=== PATIENT | male | born 1950 | race Caucasian/White ===

== ENCOUNTER → 2016-11-21 | Outpatient (CLI) | payer MEDICARE, OTHER ==
--- NOTE | 2016-11-21 13:36 | CONS ---
DATE OF CONSULTATION: 11/21/2016 This patient is a 65-year-old gentleman who has been evaluated in the sleep center for possible obstructive sleep apnea-hypopnea syndrome. HISTORY OF PRESENT ILLNESS: SLEEP-WAKE EVALUATION: Patient's usual sleep schedule is from around 10 p.m. to 6 a.m. He mostly falls asleep well. No TV in bedroom. He prefers to sleep on his stomach. He snores, wakes up from sleep with nocturia 2 times. No history of hypnagogic hallucinations, sleep paralysis or cataplexy. During the day he may feel sleepiness. [place] Sleepiness Scale increased to 9. He may take naps in the afternoon time and he feels refreshed after a nap. Past medical history is positive for: 1. Hypertension. 2. Hyperlipidemia. 3. Hypothyroidism. 4. Acid reflux. 5. BPH. 6. Back arthritis. 7. Knee arthritis. PAST SURGICAL HISTORY: None. MEDICATIONS: 1. Multivitamins. 2. Amlodipine. 3. Atenolol. 4. Xarelto. 5. Lipitor. 6. Ambien 10 mg at bedtime. 7. Celebrex. 8. Flomax. 9. Nexium. 10. Cymbalta. 11. Thyroxine. SOCIAL HISTORY: Negative for smoking. Alcohol consumption rarely. REVIEW OF SYSTEMS: Awakenings from sleep, feeling tiredness and sleepiness during the day. No fevers. No double vision. No recent chest pain. No shortness of breath. No abdominal pain. No bleeding episodes. No blood in urine. No seizure episodes. FAMILY HISTORY: Unavailable. Patient was adopted. PHYSICAL EXAMINATION: GENERAL: A pleasant 65-year-old gentleman without distress. VITAL SIGNS: BP 119/71, HR 58, RR 16. Height 68-1/2. Weight 230.6. BMI 34.4. Neck 17 inches in circumference. Temperature 98.1. Oxygen saturation at room air 98%. HEENT: PERRLA, EOMI. Evaluation of oropharynx showed tongue protrudes midline; extremely low position of soft palate. NECK: Supple. No JVD. Thyroid is not palpable. LUNGS: Clear to percussion and to auscultation. Good air exchange. No wheezing or rhonchi. HEART: S1, S2 regular. No murmurs, gallops or rubs. ABDOMEN: Obese. EXTREMITIES: No clubbing or cyanosis. STORE DETECTIVE: Awake, alert, and oriented x3. Cranial nerves 2 to 7 intact. There is no fasciculation or atrophy noted. No focal deficits observed. IMPRESSION: 1. Snoring, awakenings from sleep with nocturia, extremely low position of soft palate; patient takes naps in the afternoon; sometimes feels sleepy and irritated; obstructive sleep apnea-hypopnea syndrome. 2. Obesity; body mass index of 34.4. 3. Hypertension. 4. Hyperlipidemia. 5. Hypothyroidism. 6. Acid reflux. 7. History of benign prostatic hypertrophy. 8. History of back arthritis. 9. History of knee arthritis. PLAN: 1. Polysomnography for evaluation of patient's breathing during sleep. 2. CPAP/BiPAP titration if sleep study confirms obstructive sleep apnea-hypopnea syndrome. 3. Preferable position during sleep on the side. 4. No driving if patient feels any sleepiness. Patient is aware of civil and criminal liability for unsafe driving. 5. I will see patient for follow-up visit to explain results of the testing and following plan. Thank you very much for referring this patient for consultation. Sincerely, Akira Leigh MD, PhD, FAASM. Diplomat of [place] [employer], Sleep Medicine Board by [place] [employer] [place] [employer] [facility] [place]
== END ==
LOC: SLEEP 11:08
PROVIDERS: ATTEND Internal Medicine
DX: G47.33 Obstructive sleep apnea (adult) (pediatric) (principal); E66.9 Obesity, unspecified; I10 Essential (primary) hypertension; E78.5 Hyperlipidemia, unspecified; E03.9 Hypothyroidism, unspecified; K21.9 Gastro-esophageal reflux disease without esophagitis; Z98.890 Other specified postprocedural states; Z79.01 Long term (current) use of anticoagulants; Z79.899 Other long term (current) drug therapy; Z79.1 Long term (current) use of non-steroidal anti-inflammatories (NSAID)
CPT/HCPCS: 99211

== ENCOUNTER → 2016-12-24 | Outpatient (CLI) | payer MEDICARE ==
[2016-12-24 08:25] LABS: ALT 63 U/L (21-72); AST 39 U/L (17-59); Alkaline Phosphatase 75 U/L (38-126); Anion Gap 9 mmol/L; Blood Urea Nitrogen 22 mg/dL (9-20); Calcium 9.2 mg/dL (8.4-10.2); Carbon Dioxide 28 mmol/L (22-30); Chloride 106 mmol/L (98-107); Cholesterol 130 mg/dL (<200); Glucose 101 mg/dL (74-99); HDL Cholesterol 43 mg/dL (40-60); Non-African American GFR(MDRD) >60 (>60 ml/min/1.73 sqM); Potassium 4.9 mmol/L (3.5-5.1); Sodium 143 mmol/L (137-145); Total Bilirubin 0.5 mg/dL (0.2-1.3); Total Protein 7.4 g/dL (6.3-8.2); Triglycerides 150 mg/dL (<150)
== END | disposition home or self-care (01) ==
LOC: LABWHC1 07:13
PROVIDERS: ATTEND Internal Medicine Interventional Cardiology
DX: E78.2 Mixed hyperlipidemia (principal)
CPT/HCPCS: 36415; 80053; 80061

== ENCOUNTER → 2017-11-01 | Outpatient (CLI) | payer MEDICARE ==
[2017-11-01 08:45] LABS: Basophils # (A) 0.1 k/uL (0-0.2); Basophils % (A) 1 %; Eosinophils # (A) 0.3 k/uL (0-0.7); Eosinophils % (A) 5 %; HCT 52.3 % (39.0-53.0); HGB 17.1 gm/dL (13.0-17.5); Lymphocytes # (A) 1.3 k/uL (1.0-4.8); Lymphocytes % (A) 20 %; MCH 28.9 pg (25.0-35.0); MCHC 32.7 g/dL (31.0-37.0); MCV 88.3 fL (80.0-100.0); Mean Platelet Volume 7.3; Monocytes # (A) 0.7 k/uL (0-1.0); Monocytes % (A) 10 %; Neutrophils # (A) 4.1 k/uL (1.3-7.7); Neutrophils % (A) 61 %; Platelet Count 230 k/uL (150-450); RBC 5.93 m/uL (4.30-5.90); RDW 13.1 % (11.5-15.5); WBC 6.7 k/uL (3.8-10.6)
[2017-11-01 09:50] LABS: ALT 64 U/L (21-72); AST 37 U/L (17-59); Albumin 4.2 g/dL (3.5-5.0); Alkaline Phosphatase 80 U/L (38-126); Anion Gap 12 mmol/L; Blood Urea Nitrogen 18 mg/dL (9-20); Calcium 9.8 mg/dL (8.4-10.2); Carbon Dioxide 28 mmol/L (22-30); Chloride 104 mmol/L (98-107); Cholesterol 111 mg/dL (<200); Glucose 113 mg/dL (74-99); HDL Cholesterol 42 mg/dL (40-60); LDL Cholesterol,Calculated 55 mg/dL (0-99); Sodium 144 mmol/L (137-145); Total Bilirubin 0.7 mg/dL (0.2-1.3); Total Protein 7.4 g/dL (6.3-8.2); Triglycerides 68 mg/dL (<150)
[2017-11-01 10:05] LABS: T4, Free (Free Thyroxine) 0.98 ng/dL (0.78-2.19)
[2017-11-01 10:19] LABS: Prostate Specific Antigen 0.67 ng/mL (0.00-4.00)
== END | disposition home or self-care (01) ==
LOC: LABWHC1 08:05
PROVIDERS: ATTEND Family Medicine
DX: I48.0 Paroxysmal atrial fibrillation (principal); I10 Essential (primary) hypertension; E78.2 Mixed hyperlipidemia; R00.2 Palpitations
CPT/HCPCS: 36415; 80053; 80061; 84153; 84439; 84443; 85025

== ENCOUNTER → 2017-11-28 | Outpatient (CLI) | payer MEDICARE ==
--- NOTE | 2017-11-28 10:17 | XR ---
EXAMINATION TYPE: XR lumbosacral spine min 4V DATE OF EXAM: 11/28/2017 CLINICAL HISTORY: pain COMPARISON: NONE TECHNIQUE: Frontal, lateral, and oblique images of the lumbar spine are obtained. FINDINGS: There is a rotoscoliosis convex to the right. There are 5 lumbar type vertebral bodies manuel ntified. The lumbar spine shows satisfactory alignment without evidence of acute fracture or disloca tion. Vertebral body heights are within normal limits. Severe multilevel degenerative disc disease no gilmar with a vacuum disc, endplate sclerosis and facet joint arthropathy. Ventral spondylosis noted. The overlying soft tissue appears unremarkable. IMPRESSION: No acute fracture or dislocation is seen in the lumbar spine.ICD 10 NO FRACTURE, INITIAL EVALUATION
== END | disposition home or self-care (01) ==
LOC: RADXRMAIN 09:34
PROVIDERS: ATTEND Family Medicine
DX: M54.89 Other dorsalgia (principal)
CPT/HCPCS: 72110

== ENCOUNTER → 2018-08-11 | Outpatient (CLI) | payer MEDICARE ==
[2018-08-11 11:14] LABS: LDL Cholesterol,Calculated 56.4 mg/dL (0.0-131.0); VLDL Calculation 12.6 mg/dL (5.00-40.00)
== END | disposition home or self-care (01) ==
LOC: LABWHC1 06:31
PROVIDERS: ATTEND Internal Medicine Interventional Cardiology
DX: E78.2 Mixed hyperlipidemia (principal)
CPT/HCPCS: 36415; 80061; 84450; 84460

== ENCOUNTER → 2019-01-13 | Outpatient (CLI) | payer MEDICARE ==
[2019-01-13 10:02] LABS: African American GFR (CKD) >90 (>60 ml/min/1.73 sqM); Blood Urea Nitrogen 18 mg/dL (9-20)
--- NOTE | 2019-01-13 13:22 | CT ---
EXAMINATION TYPE: CT abdomen pelvis w con DATE OF EXAM: 01/13/2019 COMPARISON: NONE HISTORY: 68-year-old male Right lower quadrant pain (knot feeling) TECHNIQUE: Contiguous axial scanning of the abdomen and pelvis following administration of 100 ml Iso joni 300 IV contrast. Delayed images through the kidneys and coronal/sagittal reconstructions perform ed. CT DLP: 3526 mGycm Automated exposure control for dose reduction was used. FINDINGS: Heart upper limits of normal in size without pericardial effusion. Prominent epicardial fat pad noted . Strandy atelectasis or scarring inferior lingula. No pleural effusion. Small hiatal hernia. Suggestion of tiny layering calculi in the gallbladder. No abnormal gallbladder distention. No focal liver lesion or biliary ductal dilatation. Portal venous system is patent. Adrenal glands, left kidney, spleen, and pancreas appear within normal limits. 5.8 cm cyst anterior upper pole right kidney. No dilated small bowel, free fluid, or free air. No mesenteric or retroperitoneal lymphadenopathy. Moderate stool in the cecum and lower ascending colon. Only mild stool elsewhere in the colon. Mild l eft-sided colonic diverticulosis. No pericolonic inflammatory change. Appendix not clearly visualized. No secondary findings of acute appendicitis. Bladder urine distended. Prostate gland is enlarged at 5.4 cm wide with lobulated median lobe hypertr ophy impressing into the posterior bladder base measuring 3.1 x 1.8 cm. Patulous left inguinal canal. No abnormal fluid collection in the pelvis or pelvic lymphadenopathy. Bones: Mild degenerative changes at the hips. Advanced disc/endplate degenerative change and hypertro phic facet arthropathy throughout the lumbar spine. Grade 1 retrolisthesis L3-L4 and grade 1 anteroli sthesis L4-L5. IMPRESSION: 1. MODERATE STOOL IN THE CECUM AND LOWER ASCENDING COLON. MILD LEFT-SIDED COLONIC DIVERTICULOSIS. 2. SMALL HIATAL HERNIA AND TINY GALLSTONES. 3. A 5.8 CM RIGHT RENAL CYST. 4. PROSTATOMEGALY (5.4 CM WIDE) AND PROMINENT NODULAR SOFT TISSUE IMPRESSING INTO THE BLADDER BASE GRACE GGESTING MEDIAN LOBE HYPERTROPHY. CORRELATE FOR ANY BPH SYMPTOMS.
== END | disposition home or self-care (01) ==
LOC: RADCTMAIN 09:06
PROVIDERS: ATTEND Family Medicine
DX: K57.30 Diverticulosis of large intestine without perforation or abscess without bleeding (principal); K44.9 Diaphragmatic hernia without obstruction or gangrene; K80.20 Calculus of gallbladder without cholecystitis without obstruction; N28.1 Cyst of kidney, acquired; N40.0 Benign prostatic hyperplasia without lower urinary tract symptoms; M79.89 Other specified soft tissue disorders; R50.9 Fever, unspecified
CPT/HCPCS: 82565; 84520; 74177; 36415; Q9967

== ENCOUNTER → 2019-01-22 | Outpatient (CLI) | payer MEDICARE | END | disposition home or self-care (01) | LOC: LABWHC1 10:45 | PROVIDERS: ATTEND Family Medicine | DX: Z12.5 Encounter for screening for malignant neoplasm of prostate (principal) | CPT/HCPCS: 36415; 84153 ==

== ENCOUNTER → 2019-02-03 | Outpatient (CLI) | payer MEDICARE ==
[2019-02-03 17:59] LABS: T4, Free (Free Thyroxine) 1.1 ng/dL (0.80-1.80)
== END | disposition home or self-care (01) ==
LOC: LABWHC1 09:39
PROVIDERS: ATTEND Family Medicine
DX: E03.9 Hypothyroidism, unspecified (principal); Z20.9 Contact with and (suspected) exposure to unspecified communicable disease
CPT/HCPCS: 36415; 84439; 84443; 84481; 86803

== ENCOUNTER → 2019-02-19 | Outpatient (CLI) | payer MEDICARE ==
[2019-02-19 07:55] LABS: Basophils # (A) 0.1 k/uL (0-0.2); Basophils % (A) 1 %; Eosinophils # (A) 0.4 k/uL (0-0.7); Eosinophils % (A) 5 %; HCT 48.6 % (39.0-53.0); HGB 15.9 gm/dL (13.0-17.5); Lymphocytes # (A) 1.6 k/uL (1.0-4.8); Lymphocytes % (A) 23 %; MCH 29.4 pg (25.0-35.0); MCHC 32.8 g/dL (31.0-37.0); MCV 89.6 fL (80.0-100.0); Mean Platelet Volume 7.2; Monocytes # (A) 0.8 k/uL (0-1.0); Monocytes % (A) 11 %; Neutrophils % (A) 56 %; Platelet Count 217 k/uL (150-450); RBC 5.42 m/uL (4.30-5.90); RDW 14.4 % (11.5-15.5); WBC 7.1 k/uL (3.8-10.6)
[2019-02-19 12:05] LABS: Albumin 4.4 g/dL (3.80-4.90); Anion Gap 8.1 mmol/L (4.00-12.00); Calcium 9.1 mg/dL (8.7-10.3); Carbon Dioxide 28.9 mmol/L (21.6-31.8); Globulin 2.2 g/dL (1.6-3.3); LDL Cholesterol,Calculated 68.2 mg/dL (0.0-131.0); Potassium 4.7 mmol/L (3.5-5.5); Total Bilirubin 0.6 mg/dL (0.2-1.2); Total Protein 6.6 g/dL (6.2-8.2); VLDL Calculation 16.8 mg/dL (5.00-40.00)
== END | disposition home or self-care (01) ==
LOC: LABWHC1 07:00
PROVIDERS: ATTEND Family Medicine
DX: E78.5 Hyperlipidemia, unspecified (principal); Z20.9 Contact with and (suspected) exposure to unspecified communicable disease
CPT/HCPCS: 36415; 80053; 80061; 85025; 86803

== ENCOUNTER → 2020-02-02 | Outpatient (CLI) | payer MEDICARE ==
[2020-02-02 08:57] LABS: Basophils % (A) 1 %; Eosinophils # (A) 0.1 k/uL (0-0.7); Eosinophils % (A) 2 %; HCT 48.6 % (39.0-53.0); Lymphocytes # (A) 1.3 k/uL (1.0-4.8); Lymphocytes % (A) 21 %; MCH 30.6 pg (25.0-35.0); MCV 92.8 fL (80.0-100.0); Mean Platelet Volume 7.8; Monocytes # (A) 0.6 k/uL (0-1.0); Monocytes % (A) 10 %; Neutrophils # (A) 4.1 k/uL (1.3-7.7); Neutrophils % (A) 65 %; Platelet Count 196 k/uL (150-450); RBC 5.23 m/uL (4.30-5.90); RDW 12.3 % (11.5-15.5); WBC 6.3 k/uL (3.8-10.6)
[2020-02-02 17:04] LABS: African American GFR (CKD) 87.4 (60.0-200.0); Albumin 4.4 g/dL (3.80-4.90); Albumin/Globulin Ratio 1.91 (1.60-3.17); Anion Gap 8.5 mmol/L (4.00-12.00); Calcium 9.4 mg/dL (8.7-10.3); Carbon Dioxide 26.5 mmol/L (21.6-31.8); Chol/HDL Ratio 3.21; Globulin 2.3 g/dL (1.6-3.3); Non-African American GFR(CKD) 75.4 (60.0-200.0); Potassium 4.5 mmol/L (3.5-5.5); Total Bilirubin 0.6 mg/dL (0.3-1.2); Total Protein 6.7 g/dL (6.2-8.2)
[2020-02-02 17:11] LABS: T4, Free (Free Thyroxine) 1.1 ng/dL (0.80-1.80)
== END | disposition home or self-care (01) ==
LOC: LABWHC1 07:59
PROVIDERS: ATTEND Family Medicine
DX: E78.5 Hyperlipidemia, unspecified (principal); E03.9 Hypothyroidism, unspecified
CPT/HCPCS: 36415; 80053; 80061; 84439; 84443; 84481; 85025

== ENCOUNTER → 2020-08-15 | Outpatient (CLI) | payer MEDICARE ==
[2020-08-15 07:48] LABS: Basophils # (A) 0.1 k/uL (0-0.2); Basophils % (A) 1 %; Eosinophils # (A) 0.2 k/uL (0-0.7); Eosinophils % (A) 3 %; HCT 48.7 % (39.0-53.0); HGB 16.5 gm/dL (13.0-17.5); Lymphocytes # (A) 1.3 k/uL (1.0-4.8); Lymphocytes % (A) 21 %; MCHC 33.9 g/dL (31.0-37.0); MCV 91.2 fL (80.0-100.0); Mean Platelet Volume 7.5; Monocytes # (A) 0.6 k/uL (0-1.0); Monocytes % (A) 10 %; Neutrophils # (A) 3.8 k/uL (1.3-7.7); Neutrophils % (A) 63 %; Platelet Count 205 k/uL (150-450); RBC 5.33 m/uL (4.30-5.90); RDW 11.9 % (11.5-15.5); WBC 6.1 k/uL (3.8-10.6)
[2020-08-15 12:37] LABS: African American GFR (CKD) 87.4 (60.0-200.0); Albumin 4.4 g/dL (3.80-4.90); Albumin/Globulin Ratio 1.91 (1.60-3.17); Anion Gap 7.8 mmol/L (4.00-12.00); Calcium 9.5 mg/dL (8.7-10.3); Carbon Dioxide 28.2 mmol/L (21.6-31.8); Chol/HDL Ratio 3.09; Globulin 2.3 g/dL (1.6-3.3); LDL Cholesterol,Calculated 58.2 mg/dL (0.0-131.0); Non-African American GFR(CKD) 75.4 (60.0-200.0); Potassium 4.4 mmol/L (3.5-5.5); Total Bilirubin 0.9 mg/dL (0.2-1.2); Total Protein 6.7 g/dL (6.2-8.2); VLDL Calculation 14.8 mg/dL (5.00-40.00)
[2020-08-15 12:48] LABS: PSA Annual Screen 0.4 ng/mL (0.0-4.0)
== END | disposition home or self-care (01) ==
LOC: LABWHC1 07:12
PROVIDERS: ATTEND Family Medicine
DX: E03.9 Hypothyroidism, unspecified (principal); Z12.5 Encounter for screening for malignant neoplasm of prostate
CPT/HCPCS: 84439; 84481; 80061; 80053; 84443; 85025; 36415; G0103

== ENCOUNTER → 2020-11-03 | Outpatient (CLI) | payer MEDICARE ==
[2020-11-03 17:13] LABS: Chol/HDL Ratio 2.85; LDL Cholesterol,Calculated 47.8 mg/dL (0.0-131.0); VLDL Calculation 15.2 mg/dL (5.00-40.00)
== END | disposition home or self-care (01) ==
LOC: LABWHC1 07:08
PROVIDERS: ATTEND Nurse Practitioner Adult Health
DX: E78.2 Mixed hyperlipidemia (principal)
CPT/HCPCS: 36415; 80061; 84450; 84460

== ENCOUNTER → 2020-12-07 | Outpatient (CLI) | payer MEDICARE ==
[2020-12-07 07:47] LABS: HCT 45.5 % (39.0-53.0); HGB 15.8 gm/dL (13.0-17.5); MCH 31.7 pg (25.0-35.0); MCHC 34.7 g/dL (31.0-37.0); MCV 91.4 fL (80.0-100.0); Mean Platelet Volume 7.6; Platelet Count 188 k/uL (150-450); RBC 4.97 m/uL (4.30-5.90); RDW 12.4 % (11.5-15.5); WBC 6.4 k/uL (3.8-10.6)
[2020-12-07 08:17] LABS: African American GFR (CKD) >90 (>60 ml/min/1.73 sqM); Anion Gap 8 mmol/L; Blood Urea Nitrogen 17 mg/dL (9-20); Carbon Dioxide 30 mmol/L (22-30); Chloride 103 mmol/L (98-107); Non-African American GFR(CKD) 88 (>60 ml/min/1.73 sqM); Potassium 4.2 mmol/L (3.5-5.1); Sodium 141 mmol/L (137-145)
== END | disposition home or self-care (01) ==
LOC: LABPAT 07:07
PROVIDERS: ATTEND Internal Medicine Cardiovascular Disease
DX: Z01.812 Encounter for preprocedural laboratory examination (principal); I49.5 Sick sinus syndrome
CPT/HCPCS: 36415; 80051; 82565; 84520; 85027

== ENCOUNTER 2020-12-08 07:57 | Day surgery (SDC) | payer MEDICARE ==
[2020-12-06 13:37] VITALS: BMI 28.5
[~2020-12-08 07:57] MED LIST: SODIUM CHLORIDE 0.9% 1,000 ML IV SCH; ceFAZolin 1 GM in SODIUM CHLORIDE 0.9% 250 ML IRRIGATION PRN
[2020-12-08] MEDS ORDERED: LIDOCAINE 1% INJ 10MG/ML (20 ML MDV) ONE (08:51)
[2020-12-08] MEDS ORDERED: fentaNYL (PF) 50 MCG/ML 2 ML AMP ONE (08:52)
[2020-12-08] MEDS ORDERED: IOPAMIDOL-250 50ML BTL IV ONE (09:02)
[2020-12-08] MEDS: MIDAZOLAM 2 MG/2 ML VIAL IVP ONE ×2 (09:18→09:24)
[2020-12-08] MEDS ORDERED: fentaNYL (PF) 50 MCG/ML 2 ML AMP IVP ONE (09:18)
[2020-12-08] MEDS ORDERED: LIDOCAINE 1% INJ 10MG/ML (20 ML MDV) SQ ONE ×2 (09:21→09:23)
[2020-12-08] MEDS ORDERED: ACETAMINOPHEN TAB 325 MG TAB PO PRN (10:25)
--- NOTE | 2020-12-08 12:04 | P.PCN ---
Date of Procedure: 12/08/20 Preoperative Diagnosis: Sick sinus syndrome with paroxysmal atrial fibrillation and pauses up to 10 seconds Postoperative Diagnosis: The same Procedure(s) Performed: Axillary venography, dual-chamber permanent pacemaker implantation Description of Procedure: HISTORY: This is a 70-year-old gentleman who has history of paroxysmal atrial fibrillation. Patient was started on flecainide recently and developed significant pauses up to 10-12 seconds. Patient is advised to have permanent pacemaker implantation with intention of continuing medical therapy to maintain sinus rhythm. CONSENT:I have discussed the risks, benefits and alternative therapies for the above-mentioned procedure and for both sedation/analgesia as well as necessary blood product administration, if indicated, as they pertain to this patient. The patient has indicated understanding and acceptance of the risks and procedures discussed. PROCEDURE: Patient was brought to the lab in a fasting state. Patient was prepped and draped in the usual fashion. Patient was given IV sedation with fentanyl and Versed. The skin below the left clavicle was infiltrated with lidocaine. An incision was made parallel to deltopectoral groove was deepened until the pectoral fascia was exposed. A pocket was created by blunt dissection and cautery. Axillary venography was performed to delineate the course of the axillary vein. 2 sticks were performed into extrathoracic portion of the axillary vein and 2 sheaths were advanced over the guidewires and left in subclavian vein. Conscious Sedation: Versed 1mg Fentanyl 50 g Duration 59minutes LEADS: ATRIAL: This is manufactured by [employer]. The model number is 5076-52 and the serial number is [id number] VENTRICULAR: This is manufactured by [employer]. Model number is 5076-58 and the serial number is [id number] THE DEVICE: This is manufactured by [employer]. Model number is [id number] and the serial number is [id number]. The ventricular lead is maneuvered l with help of a straight and curved stylets into the left ventricle apical region. Satisfactory position was obtained and threshold measurements were made. The atrial lead was then maneuvered into the right atrial appendage. And thresholds were obtained. THRESHOLDS: ATRIUM: The minimum patient threshold is 0.75 at pulse width of 0.5. The impedance is 500 P-wave: 1.7 VENTRICLE: The minimum patient threshold was 0.5 at pulse width of 0.5. The impedance is 665 R-wave: 11 The leads and pulse generator remained in the pocket after it was washed with antibiotics. Pocket was closed in the usual fashion. The fascia was closed with 2-0 Prolene ,the subcutaneous tissue was closed with 3-0 Prolene and the skin was closed with 4-0 Prolene. PROGRAMMING: MODE: AAIR to to DDDR RATE: 60 to 130 OUTPUT: Atrium : 3.5 Ventricle: 3.5 FINAL IMPRESSION: #1. Axillary venography #2. Dual-chamber permanent pacemaker implantation COMPLICATIONS: None PLAN: Patient will be monitored on telemetry unit. Prophylactic antibacterial be continued. Chest x-ray in the morning. Possible discharge within 24 hours
[2020-12-08] MEDS ORDERED: HYDROmorphone 0.5 MG/0.5 ML SYRINGE IVP PRN (15:49)
[2020-12-08] MEDS: HYDROcodone/APAP 5-325MG 1 EACH TAB PO PRN ×2 (16:01→22:21)
[2020-12-08] MEDS ORDERED: amLODIPine 10 MG TAB PO SCH (17:30)
[2020-12-08] MEDS ORDERED: ATORVASTATIN 20 MG TAB PO SCH (17:30)
[2020-12-09] MEDS: HYDROcodone/APAP 5-325MG 1 EACH TAB PO PRN (04:26)
[2020-12-09] MEDS ORDERED: LEVOTHYROXINE 75 MCG TAB PO SCH (06:30)
[2020-12-09 06:55] VITALS: BP 127/81; PULSE 59; RESP 16; TEMP 97.3
--- NOTE | 2020-12-09 07:26 | XR ---
EXAMINATION TYPE: XR chest 2V DATE OF EXAM: 12/09/2020 COMPARISON: NONE TECHNIQUE: PA and lateral views submitted. HISTORY: Lead placement check FINDINGS: The lungs are clear and there is no pneumothorax, pleural effusion, or focal pneumonia. Interstitia l pattern noted. There is a pacemaker with no sizable pneumothorax. Double lead cardiac device with p roximal lead overlying the right atrium and second lead overlying right ventricle region. Additional coils leads or wires may be superficial to the patient should be correlated clinically. IMPRESSION: 1. No postprocedural complication. Correlate for interstitial lung disease, pneumonitis, or venous co ngestion..
[2020-12-09] MEDS ORDERED: PANTOPRAZOLE 40 MG TABLET PO SCH (07:30)
[2020-12-09] MEDS ORDERED: TAMSULOSIN 0.4 MG CAP.ER.24H PO SCH (09:00)
[2020-12-09] MEDS ORDERED: MULTIVITAMINS, THERA 1 EACH TAB PO SCH (09:00)
[2020-12-09] MEDS ORDERED: FINASTERIDE 5 MG TAB PO SCH (09:00)
--- NOTE | 2020-12-09 09:16 | P.DS ---
Providers Attending physician: Rukhsana Mclaughlin Primary care physician: Willie Sarmiento [facility] Course: Patient is a pleasant 70-year-old male with a history of sick sinus syndrome. He was found to have up to 12 second pauses as an outpatient with joints of lightheadedness and therefore recommendation for permanent pacemaker. Patient had dual-chamber permanent pacemaker placed 12/08/2020. He did admit to some mild discomfort after the procedure however has been doing well on 12/09/2020. Pacemaker was interrogated with normal functioning x-ray shows no significant pneumothorax or findings. Patient stable for discharge home on 12/09/2020. Exam: General no acute process, lungs clear to auscultation bilaterally, heart regular rate and rhythm, no murmur Plan - Discharge Summary Discharge Rx Participant: No New Discharge Prescriptions: No Action Levothyroxine Sodium [Synthroid] 75 mcg PO DAILY Finasteride [Proscar] 5 mg PO DAILY Rivaroxaban [Xarelto] 20 mg PO W/SUPPER Atorvastatin [Lipitor] 20 mg PO W/SUPPER Multivitamins, Thera [Multivitamin (formulary)] 1 tab PO DAILY Tamsulosin [Flomax] 0.4 mg PO DAILY Esomeprazole Magnesium [NexIUM] 40 mg PO DAILY amLODIPine [Norvasc] 10 mg PO W/SUPPER Discharge Medication List Atorvastatin [Lipitor] 20 mg PO W/SUPPER 12/06/20 [History] Esomeprazole Magnesium [NexIUM] 40 mg PO DAILY 12/06/20 [History] Finasteride [Proscar] 5 mg PO DAILY 12/06/20 [History] Levothyroxine Sodium [Synthroid] 75 mcg PO DAILY 12/06/20 [History] Multivitamins, Thera [Multivitamin (formulary)] 1 tab PO DAILY 12/06/20 [History] Rivaroxaban [Xarelto] 20 mg PO W/SUPPER 12/06/20 [History] Tamsulosin [Flomax] 0.4 mg PO DAILY 12/06/20 [History] amLODIPine [Norvasc] 10 mg PO W/SUPPER 12/06/20 [History]
== END 2020-12-09 09:42 ==
LOC: CATHEP 07:57 → 6NMEDSUR 10:43 → CATHEP 12-09 09:42
PROVIDERS: ATTEND Internal Medicine Cardiovascular Disease
DX: I48.0 Paroxysmal atrial fibrillation (principal); I49.5 Sick sinus syndrome; E78.5 Hyperlipidemia, unspecified; I10 Essential (primary) hypertension; Z20.822 Contact with and (suspected) exposure to COVID-19; G47.33 Obstructive sleep apnea (adult) (pediatric); I49.1 Atrial premature depolarization; E78.00 Pure hypercholesterolemia, unspecified; Z79.899 Other long term (current) drug therapy; Z79.01 Long term (current) use of anticoagulants; Z88.1 Allergy status to other antibiotic agents
CPT/HCPCS: 33208; 87635; 71046; C1769 ×2; C1892; C1898; C1785; S0138; J2250; J0690; J2001; J3010; Q9966

== ENCOUNTER → 2021-01-04 | Outpatient (CLI) | payer MEDICARE ==
--- NOTE | 2021-01-04 17:03 | XR ---
EXAMINATION TYPE: XR knee complete bilateral DATE OF EXAM: 01/04/2021 COMPARISON: None HISTORY: Pain TECHNIQUE: 4 view bilateral knees each FINDINGS: Right knee: There is narrowing of the medial compartment joint space. Minimal medial femoral condylar and medial tibial plateau spurring is present. No joint effusion is evident. Some tibial plateau end plate changes not excluded. No acute fractures evident. Left knee: No joint effusion is evident. Joint spaces appear preserved. No acute fractures evident. IMPRESSION: 1. Mild to moderate degenerative change medial compartment right knee. Old tibial plateau compressio n deformity may be present. 2. No suspicious acute or old changes left knee. 3. Follow up exams can be performed as clinically indicated.
== END | disposition home or self-care (01) ==
LOC: RADXRMAIN 14:06
PROVIDERS: ATTEND Nurse Practitioner
DX: M17.11 Unilateral primary osteoarthritis, right knee (principal); M25.562 Pain in left knee

== ENCOUNTER → 2021-02-14 | Outpatient (CLI) | payer MEDICARE ==
--- NOTE | 2021-02-14 07:48 | US ---
EXAMINATION TYPE: US duplex aorta DATE OF EXAM: 02/14/2021 COMPARISON: NONE CLINICAL HISTORY: Z13.6 screening for AAA. EXAM MEASUREMENTS: Abdominal Aorta: Proximal: 2.2 x 2.0cm Mid: 2.2 x 1.8cm Distal: 1.9 x 1.8cm Bifurcation: RT: 1.4 x 1.4cm LT: 1.3 x 1.3cm Limitations due to large amount of overlying bowel content. no evidence of AAA as visualized IMPRESSION: No sonographic evidence for abdominal aortic aneurysm on this limited study.
== END | disposition home or self-care (01) ==
LOC: RADUSWWP 07:17
PROVIDERS: ATTEND Family Medicine
DX: Z13.6 Encounter for screening for cardiovascular disorders (principal)
CPT/HCPCS: 93979

== ENCOUNTER → 2021-06-22 | Outpatient (CLI) | payer MEDICARE ==
[2021-06-22 10:40] LABS: ALT 48 U/L (10-49); AST 33 U/L (14-35); African American GFR (CKD) 86.8 (60.0-200.0); Albumin 4.5 g/dL (3.8-4.9); Albumin/Globulin Ratio 1.67 (1.60-3.17); Alkaline Phosphatase 71 U/L (41-126); Blood Urea Nitrogen 13.9 mg/dL (9.0-27.0); Calcium 9.6 mg/dL (8.7-10.3); Carbon Dioxide 26.1 mmol/L (20.0-27.5); Chloride 104 mmol/L (96-109); Chol/HDL Ratio 2.68 Ratio; Globulin 2.7 g/dL (1.6-3.3); Glucose 105 mg/dL (70-110); LDL Cholesterol,Calculated 50.8 mg/dL (0.0-131.0); Non-African American GFR(CKD) 74.9 (60.0-200.0); Potassium 4.6 mmol/L (3.5-5.5); Sodium 140 mmol/L (135-145); Total Protein 7.2 g/dL (6.2-8.2)
== END | disposition home or self-care (01) ==
LOC: LABWHC1 07:09
PROVIDERS: ATTEND Nurse Practitioner Adult Health
DX: I10 Essential (primary) hypertension (principal); E78.2 Mixed hyperlipidemia
CPT/HCPCS: 36415; 80053; 80061

== ENCOUNTER 2021-07-09 08:30 | Day surgery (SDC) | payer MEDICARE ==
[2021-07-06 08:25] VITALS: BMI 29.9
[~2021-07-09 08:30] MED LIST changes: -ceFAZolin 1 GM in SODIUM CHLORIDE 0.9% 250 ML IRRIGATION PRN
[2021-07-09 09:48] VITALS: RESP 16; TEMP 98.7
[2021-07-09] MEDS ORDERED: LIDOCAINE 1% INJ 10MG/ML (20 ML MDV) ONE (10:00)
[2021-07-09] MEDS ORDERED: PROPOFOL 10 MG/ML 20 ML VIAL IV ONE (10:00)
[2021-07-09] MEDS ORDERED: SODIUM CHLORIDE 0.9% 1,000 ML IV SCH (10:45)
--- NOTE | 2021-07-09 11:56 | ECHOT ---
TRANSESOPHAGEAL ECHOCARDIOGRAM INDICATION: Evaluation of left atrial appendage. PROCEDURE DESCRIPTION: After explaining the procedure to the patient, its risks and complications, his blood pressure, heart rate and O2 saturation were monitored. The throat was sprayed with Cetacaine. He received sedation per Anesthesia Department. The probe was introduced in the esophagus without difficulty. Images were obtained. Following that, the probe was removed. There was no immediate complication. FINDINGS: Left atrial size is dilated. Left atrial appendage is normal. Left ventricular size and systolic function normal. The aortic valve revealed fibrocalcific changes of the aortic cusp with preserved opening. Mitral valve appears to be normal. Tricuspid valve is normal. Descending thoracic aorta appears to be normal. Contrast bubble study revealed no shunting across the interatrial septum. No pericardial effusion was noted. Doppler pulse wave and color Doppler were obtained and revealed moderate mitral and tricuspid regurgitation. There was no evidence of pulmonary hypertension. Mild aortic regurgitation was noted. Evidence of patent foramen ovale with upnt-yo-awxdi shunting was noted. CONCLUSION: 1. Left atrium with normal appearance of left atrial appendage. 2. Normal left ventricular size and systolic function. 3. Moderate mitral and tricuspid regurgitation. 4. Patent foramen ovale. 5. Normal appearance of descending thoracic aorta. 6. No pericardial effusion. MMODL / IJN: [id number] /
--- NOTE | 2021-07-09 13:14 | PCN ---
PROCEDURE NOTE CARDIOVERSION PROCEDURE NOTE: INDICATION: Atrial tachycardia. PROCEDURE DESCRIPTION: After explaining the procedure to the patient, its risks and complications, his blood pressure, heart rate, O2 saturation were monitored. After obtaining a sedated state, a synchronized biphasic cardioversion was performed after performing transesophageal echocardiogram using 75 joules, with spiritism of normal sinus rhythm. There was no immediate complication. YASMIN / DARYL: [id number] /
[2021-07-09] MEDS ORDERED: ATORVASTATIN 20 MG TAB PO SCH (17:30)
[2021-07-09] MEDS ORDERED: amLODIPine 10 MG TAB PO SCH (17:30)
[2021-07-09] MEDS ORDERED: RIVAROXABAN 20 MG TAB PO SCH (17:30)
[2021-07-09] MEDS ORDERED: atenoloL 25 MG TAB PO SCH (17:30)
[2021-07-09 17:34] VITALS: BP 107/54; PULSE 75
[2021-07-09] MEDS ORDERED: FLECAINIDE 50 MG TAB PO SCH (21:00)
[2021-07-10] MEDS ORDERED: LEVOTHYROXINE 75 MCG TAB PO SCH (09:00)
[2021-07-10] MEDS ORDERED: TAMSULOSIN 0.4 MG CAP.ER.24H PO SCH (09:00)
== END 2021-07-09 12:40 | disposition home or self-care (01) ==
LOC: CATHCVL 08:30
PROVIDERS: ATTEND Internal Medicine Interventional Cardiology
DX: I47.1 Supraventricular tachycardia (principal); Q21.1 Atrial septal defect; I48.11 Longstanding persistent atrial fibrillation; I08.1 Rheumatic disorders of both mitral and tricuspid valves; I08.3 Combined rheumatic disorders of mitral, aortic and tricuspid valves; G47.33 Obstructive sleep apnea (adult) (pediatric); I49.1 Atrial premature depolarization; E78.2 Mixed hyperlipidemia; I65.23 Occlusion and stenosis of bilateral carotid arteries; F41.9 Anxiety disorder, unspecified; I10 Essential (primary) hypertension; I49.3 Ventricular premature depolarization; Z20.822 Contact with and (suspected) exposure to COVID-19; Z79.01 Long term (current) use of anticoagulants; Z79.899 Other long term (current) drug therapy; Z88.1 Allergy status to other antibiotic agents; Z88.8 Allergy status to other drugs, medicaments and biological substances; Z95.0 Presence of cardiac pacemaker
CPT/HCPCS: 93312; 93320; 93325; 92960; 87635; J2001; J2704

== ENCOUNTER → 2021-07-16 | Outpatient (CLI) | payer MEDICARE | END | disposition home or self-care (01) | LOC: LABWHC1 11:32 | PROVIDERS: ATTEND Nurse Practitioner Family | DX: J06.9 Acute upper respiratory infection, unspecified (principal) | CPT/HCPCS: U0003; C9803 ==

== ENCOUNTER → 2021-08-09 | Outpatient (CLI) | payer MEDICARE ==
--- NOTE | 2021-08-09 11:58 | XR ---
EXAMINATION TYPE: XR chest 2V DATE OF EXAM: 08/09/2021 COMPARISON: 12/09/2020 HISTORY: 70-year-old female J06.9 TECHNIQUE: Frontal and lateral views FINDINGS: Heart upper limits of normal in size. Left anterior chest wall pacemaker generator. Right atrial and right ventricular leads. Slight eventration anterior right hemidiaphragm is unchanged. [facility] within th e mid thoracic spine. No consolidation or pleural effusion. IMPRESSION: Some hypoventilatory changes. [facility] in the mid thoracic spine. No acute process seen.
== END | disposition home or self-care (01) ==
LOC: RADXRMAIN 09:14
PROVIDERS: ATTEND Nurse Practitioner Family
DX: J06.9 Acute upper respiratory infection, unspecified (principal)
CPT/HCPCS: 71046

== ENCOUNTER → 2021-09-05 | Outpatient (CLI) | payer MEDICARE ==
--- NOTE | 2021-09-05 18:24 | CONS ---
CONSULTATION DATE OF SERVICE: 09/05/2021 This 70-year-old gentleman has been evaluated in Sleep Center for obstructive sleep apnea-hypopnea syndrome. HISTORY OF PRESENT ILLNESS/SLEEP-WAKE EVALUATION: Patient has a history of obstructive sleep apnea, diagnosed about 5 years ago, but at that time he was not able to use CPAP therapy. At present his sleep schedule is from about 7 or 8 p.m. until 4 or 5 a.m. No problems with falling asleep. No TV in bedroom. He wakes up from sleep 4 times with nocturia, occasional episodes of palpitations. During the day he has episodes of depression, anxiety, claustrophobia. [place] Sleepiness Scale is 2. PAST MEDICAL HISTORY: Positive for atrial fibrillation, hypertension, hypothyroidism, arthritis. PAST SURGICAL HISTORY: Permanent pacemaker insertion. MEDICATIONS: 1. Amlodipine 10 mg once a day. 2. Atenolol 25 mg once a day. 3. Atorvastatin 20 mg once a day. 4. Flomax 0.4 mg once a day. 5. Nexium 40 mg once a day. 6. Thyroxine 75 mcg once a day. 7. Xarelto 20 mg once a day. SOCIAL HISTORY: Negative for smoking. Alcohol consumption rarely. FAMILY HISTORY: Unavailable. Patient is adopted. REVIEW OF SYSTEMS: Multiple awakenings from sleep. No fevers. No double vision. No recent chest pain. No shortness of breath. No abdominal pain. No bleeding episodes. No blood in the urine. No seizure episodes. PHYSICAL EXAMINATION: GENERAL: Pleasant gentleman without distress. VITAL SIGNS: BP 100/64, HR 70, RR 14, height 5 feet 8-1/4 inches, weight 221.8 pounds, body mass index 33.4, temperature 96.7, oxygen saturation at room air 93%. HEENT: PERRLA, EOMI, evaluation of oropharynx showed tongue protrudes midline. Extremely low position of soft palate; Mallampati IV. NECK: Supple, no JVD. Thyroid is not palpable. LUNGS: Clear to percussion and to auscultation. Good air exchange. No wheezing or rhonchi. HEART: S1, S2 irregular. ABDOMEN: Obese. EXTREMITIES: No clubbing or cyanosis. ASSEMBLER CRIMPER: Awake, alert, and oriented X3. Cranial nerves 2 to 7 intact. There is no fasciculation or atrophy. noted. No focal deficits observed. IMPRESSION: 1. History of obstructive sleep apnea in the past, multiple awakenings from sleep with nocturia, extremely low position of soft palate, Mallampati IV, wide neck; obstructive sleep apnea-hypopnea syndrome. 2. Atrial fibrillation. 3. Hypertension. 4. Status post permanent pacemaker insertion. 5. Hypothyroidism. 6. Hyperlipidemia. 7. Arthritis. 8. Obesity; body mass index 33.4. PLAN: 1. Polysomnography for evaluation of patient's breathing during sleep. 2. CPAP/BiPAP titration if sleep study confirms obstructive sleep apnea-hypopnea syndrome. 3. Preferable position during sleep on the side. 4. No driving if patient feels any sleepiness. 5. I will see patient for follow up visit to explain results of testing and following plan. Thank you very much for referring this patient for consultation. Sincerely, Akira Leigh MD, PhD, FAASM Diplomat of [place] [employer] Sleep Medicine Board of [place] [employer] Library Clerk [employer] [facility] [place] MMODL / NICKN: [id number] /
== END | disposition home or self-care (01) ==
LOC: SLEEP 13:06
PROVIDERS: ATTEND Internal Medicine
DX: G47.33 Obstructive sleep apnea (adult) (pediatric) (principal); I48.91 Unspecified atrial fibrillation; I10 Essential (primary) hypertension; E03.9 Hypothyroidism, unspecified; Z95.0 Presence of cardiac pacemaker; E78.5 Hyperlipidemia, unspecified; M19.90 Unspecified osteoarthritis, unspecified site; E66.9 Obesity, unspecified; Z68.33 Body mass index [BMI] 33.0-33.9, adult
CPT/HCPCS: 99211

== ENCOUNTER 2021-09-27 09:08 | Day surgery (SDC) | payer MEDICARE ==
[2021-09-26 10:29] VITALS: BMI 29.8
[2021-09-27] MEDS ORDERED: SODIUM CHLORIDE 0.9% 1,000 ML IV ONE ×2 (09:24→11:43)
[2021-09-27] MEDS ORDERED: SUCCINYLCHOLINE CHLORIDE 100 MG/5 ML SYR IV ONE (10:39)
[2021-09-27] MEDS ORDERED: ePHEDrine 50 MG/ML 1 ML VIAL ONE (10:39)
[2021-09-27] MEDS ORDERED: MIDAZOLAM 2 MG/2 ML VIAL ONE (10:39)
[2021-09-27] MEDS ORDERED: HEPARIN SODIUM,PORCINE 10,000 UNIT/ML 1 ML VIAL ONE (10:39)
[2021-09-27] MEDS ORDERED: LIDOCAINE 1% INJ 10MG/ML (20 ML MDV) ONE ×2 (10:39→11:20)
[2021-09-27] MEDS ORDERED: ROCURONIUM 10 MG/ML (5 ML VIAL) IV ONE (10:39)
[2021-09-27] MEDS ORDERED: METOPROLOL TARTRATE 5 MG/5 ML VIAL IVP ONE (10:39)
[2021-09-27] MEDS ORDERED: PROPOFOL 10 MG/ML 20 ML VIAL IV ONE (10:39)
[2021-09-27] MEDS ORDERED: ISOPROTERENOL 250 MCG/1.25 ML SYR IV ONE (10:39)
[2021-09-27] MEDS ORDERED: fentaNYL (PF) 50 MCG/ML 2 ML AMP ONE (10:39)
[2021-09-27] MEDS ORDERED: PHENYLEPHRINE-0.9% NACL SYG 1,000 MCG/10 ML SYRINGE ONE (10:39)
[2021-09-27] MEDS ORDERED: HEPARIN SOD,PORK IN 0.45% NACL 25,000 UNIT in 0.45% NACL 1 250ML.BAG IV ONE (11:05)
--- NOTE | 2021-09-27 11:26 | P.HPCAR ---
History of Present Illness This is Dr. Renteria dictating an H/P on this patient The patient was interviewed and examined IMPRESSION / ASSESSMENT: Persistent atrial fibrillation, symptomatic History of tachybradycardia syndrome status post pacemaker implantation in November 2020 PLAN: Proceed with A. fib ablation HPI Patient continues to complain of tiredness and fatigue even after permanent pacemaker implantation He also complains of shortness of breath on exertion especially to the end of the day He complains of palpitations off and on through the day He had electrical cardioversion the month of June but he went back into atrial fibrillation subsequently He is a dual-chamber [employer] pacemaker ROS: No fever chills or rigors, no cough, phlegm or expectoration, no nausea, vomiting or diarrhea, no hematuria, dysuria, no musculoskeletal complaints, no strokes or seizures, no skin lesions. EXAMINATION: 114/74 mmHg pulse rate 68 Afebrile 98.9 Breath sounds are reduced bilaterally with no rhonchi no crackles External jugular vein prominent but no JVD Heart sounds S1 and S2 normal no murmurs or gallops or rubs REVIEW OF LABS, ECG & MEDICAL DATA Coronavirus negative Physical Exam Vitals: Vital Signs Temp Resp BP Pulse Ox 09/27/21 09:30 98.9 F 16 114/74 96 Intake and Output 09/26/21 09/27/21 09/27/21 22:59 06:59 14:59 Intake Total 500 Balance 500 Intake: IV 500 Other: Weight 98.7 kg Past Medical History Past Medical History: Atrial Fibrillation, GERD/Reflux, Hypertension, Osteoarthritis (OA), Prostate Disorder, Thyroid Disorder Additional Past Medical History / Comment(s): see Dr Renteria H&P, hx hiatal hernia, diverticulitis, History of Any Multi-Drug Resistant Organisms: None Reported Past Surgical History: Pacemaker Additional Past Surgical History / Comment(s): "removal of bowel polyp age 1", devonte cataracts, dual chamber pacemaker Past Anesthesia/Blood Transfusion Reactions: No Reported Reaction Additional Past Anesthesia/Blood Transfusion Reaction / Comment(s): adopted- no family hx Type of Cardiac Device: Permanent Pacemaker Device Placement Date:: 12-08-20 [employer] Smoking Status: Never smoker - Past Family History Mother History Unknown: Yes Family Medical History: Unable to Obtain Additional Family Medical History / Comment(s): pt is adopted Physical Examination Vital Signs Temp Resp BP Pulse Ox 09/27/21 09:30 98.9 F 16 114/74 96 Intake and Output 09/26/21 09/27/21 09/27/21 22:59 06:59 14:59 Intake Total 500 Balance 500 Intake: IV 500 Other: Weight 98.7 kg Results Current Medications Generic Name Dose Route Start Last Admin Trade Name Freq PRN Reason Stop Dose Admin Sodium Chloride 1,000 mls @ 20 mls/hr 09/27/21 06:02 Saline 0.9% IV 10/27/21 06:03 .Q24H GENEVIEVE Intake and Output 09/26/21 09/27/21 09/27/21 22:59 06:59 14:59 Intake Total 500 Balance 500 Intake: IV 500 Other: Weight 98.7 kg Patient Weight 09/28/21 06:59 Weight 98.7 kg
[2021-09-27] MEDS ORDERED: LIDOCAINE 1% INJ 10MG/ML (20 ML MDV) SQ ONE (11:44)
[2021-09-27] MEDS ORDERED: IOPAMIDOL-370 100ML BTL INJ ONE (13:28)
--- NOTE | 2021-09-27 13:50 | P.EPPROC ---
- EP Procedure Note Electrophysiology Procedure Note: PROCEDURE A. fib ablation, cryoablation of pulmonary veins Left atrial septal ablation with termination of tachycardia Left atrial roof ablation DIAGNOSIS Atrial fibrillation, symptomatic, refractory to therapy RESULT No left atrial appendage mass seen on intracardiac echo Successful A. fib ablation/pulmonary vein isolation of all veins using cryo- ablation Complete entrance block in all 4 veins confirmed Left atrial septal ablation, termination of arrhythmia Left atrial roof ablation No evidence for phrenic nerve injury Esophageal deflection YES PROCEDURE DETAILS Patient was brought to the EP lab in a fasting state after obtaining written informed consent. Procedure performed under general anesthesia Esophagus was intubated. Esophageal temperature monitoring with circa catheter. Esophageal deflection with an endoscope to avoid hypothermia of the esophagus. After initial muscle relaxant use, muscle relaxants were not given thereafter in order to assess phrenic nerve during procedure. Patient prepped and draped as per protocol Cryo ablation-set up with standard preparation of the cryoablation tools done. Femoral Venous access obtained on the right and left groins and sheaths placed Diagnostic catheters for the high right atrium, phrenic nerve stimulation and pacing, His bundle, coronary sinus placed Intracardiac echo catheter placed. Long sheath placed in the right atrium Left and right transseptal catheterization performed under intracardiac echo guidance. Intravenous heparin with aCT above 300 Later, catheter positioning and balloon positioning in the left atrium and pulmonary veins, under intracardiac echo guidance Diagnostic EP study with coronary sinus pacing and recording Baseline measurements: QRS 105, QT of 450 Patient was in an atrial tachycardia cycle length of 215 ms Normal baseline measurements Transseptal catheterization performed RA pressure 12/6/8 LA pressure 23/1/10 Transseptal catheterization performed with standard sheath. The cryoablation sheath was then placed with an over the wire exchange without any acute complications. The cryoablation balloon was placed in the office of each pulmonary vein and all 4 pulmonary veins were isolated. IV dye was injected to confirm occlusion. Goal: achieve complete occlusion of the pulmonary vein, achieve -30 degrees C at 30 seconds and achieve -40 degrees C at 60 seconds and a time to effect of less than 60 seconds. If not, the balloon was repositioned to obtain this result After completion of Cryoblation with durations from 180-240 seconds, entrance block was confirmed with the Attain circular catheter in a roving fashion around the antrum of the pulmonary veins Phrenic nerve pacing was performed from the SVC, right innominate vein area and diaphragm voltage was monitored. Diaphragmatic contractions were also monitored manually for strength of contraction. At the end of the procedure the Achieve catheter was once again used to check for entrance block Phrenic nerve stimulation was performed to confirm diaphragmatic stimulation the end of the procedure Cine fluoroscopy was performed at the very end of the procedure to confirm movement of both diaphragms with inspiration and expiration At the end of the procedure the patient was extubated Venous sheaths were removed and hemostasis assured with a closure device PROCEDURES PERFORMED Diagnostic EP study CS pacing and recording Left and right transseptal catheterization Catheter the mapping of the tachycardia Intracardiac echocardiography Pulmonary vein isolation with transseptal and comprehensive EPS, 23598 Drug infusion, +[id number] Left atrial roof line, +[id number] Linear ablation, left atrium with termination of tachycardia, +[id number]
--- NOTE | 2021-09-27 13:55 | P.PRLE ---
RE: Kemal Ruiz Dear Willie Patient underwent successful A. fib ablation. Termination of atrial fibrillation during the procedure He will continue anticoagulation as before and will continue to follow with you and Dr. Haider Thank you for entrusting me with the care of the patient Warm regards Sincerely Derrick Renteria
[2021-09-27] MEDS ORDERED: ACETAMINOPHEN TAB 325 MG TAB PO PRN (13:57)
[2021-09-27] MEDS ORDERED: HYDROcodone/APAP 5-325MG 1 EACH TAB PO PRN (13:57)
[2021-09-27] MEDS ORDERED: ACETAMINOPHEN IV (For NPO) 1,000 MG in EMPTY BAG 1 BAG IVPB ONE (15:00)
[2021-09-27] MEDS: SODIUM CHLORIDE 0.9% 1,000 ML IV SCH (15:44)
[2021-09-27] MEDS ORDERED: amLODIPine 10 MG TAB PO SCH (17:30)
[2021-09-27] MEDS ORDERED: ATORVASTATIN 20 MG TAB PO SCH (17:30)
[2021-09-27] MEDS ORDERED: atenoloL 25 MG TAB PO SCH (17:30)
[2021-09-27] MEDS ORDERED: RIVAROXABAN 20 MG TAB PO SCH (17:30)
[2021-09-28] MEDS: SODIUM CHLORIDE 0.9% 1,000 ML IV SCH (05:27)
[2021-09-28] MEDS ORDERED: LEVOTHYROXINE 75 MCG TAB PO SCH (06:30)
[2021-09-28] MEDS ORDERED: PANTOPRAZOLE 40 MG TABLET PO SCH (07:30)
[2021-09-28 07:48] VITALS: BP 105/59; PULSE 80; RESP 15; TEMP 98.7
[2021-09-28] MEDS ORDERED: FINASTERIDE 5 MG TAB PO SCH (09:00)
--- NOTE | 2021-09-28 10:51 | P.DS ---
Providers Attending physician: Derrick Renteria Primary care physician: Willie Sarmiento [facility] Course: Patient is doing well. No chest discomfort no dizziness lightheadedness to palpitations Minimal groin tenderness No sore throat Intermittent ventricular pacing Twelve-lead EKG shows T-wave inversions consistent with cardiac memory post ventricular pacing He is completely is symptomatically no chest discomfort at all On examination heart sounds are normal no rub no gallop Breath sounds are clear no rhonchi no crackles Groins of healed well Yesterday there was some oozing from the right groin but this is settled down and there is absolutely no hematoma Impression Persistent atrial fibrillation status post pulmonary vein isolation, left atrial fibrillation Status post left atrial septal ablation with termination of the tachycardia within 60 seconds of onset of the cryo lesion Sick sinus syndrome status post dual-chamber pacemaker Plan Continue current medications Continue anticoagulation Discharge home later today and follow-up of Dr. Haider and nasim Patient Condition at Discharge: Stable Plan - Discharge Summary Discharge Rx Participant: No New Discharge Prescriptions: Continue RX: Levothyroxine Sodium [Synthroid] 75 mcg PO DAILY RX: Finasteride [Proscar] 5 mg PO DAILY RX: Rivaroxaban [Xarelto] 20 mg PO W/SUPPER RX: Atorvastatin [Lipitor] 20 mg PO W/SUPPER RX: Multivitamins, Thera [Multivitamin (formulary)] 1 tab PO DAILY RX: atenoloL [Tenormin] 25 mg PO W/SUPPER RX: Acetaminophen Tab [Tylenol] 650 mg PO Q4H PRN PRN Reason: Pain RX: Tamsulosin [Flomax] 0.4 mg PO DAILY RX: Esomeprazole Magnesium [NexIUM] 40 mg PO DAILY RX: amLODIPine [Norvasc] 10 mg PO W/SUPPER RX: Ferrous Sulfate [Iron] 325 mg PO DAILY Discharge Medication List RX: Atorvastatin [Lipitor] 20 mg PO W/SUPPER 12/06/20 [History] RX: Esomeprazole Magnesium [NexIUM] 40 mg PO DAILY 12/06/20 [History] RX: Finasteride [Proscar] 5 mg PO DAILY 12/06/20 [History] RX: Levothyroxine Sodium [Synthroid] 75 mcg PO DAILY 12/06/20 [History] RX: Multivitamins, Thera [Multivitamin (formulary)] 1 tab PO DAILY 12/06/20 [History] RX: Rivaroxaban [Xarelto] 20 mg PO W/SUPPER 12/06/20 [History] RX: Tamsulosin [Flomax] 0.4 mg PO DAILY 12/06/20 [History] RX: amLODIPine [Norvasc] 10 mg PO W/SUPPER 12/06/20 [History] RX: atenoloL [Tenormin] 25 mg PO W/SUPPER 07/06/21 [History] RX: Acetaminophen Tab [Tylenol] 650 mg PO Q4H PRN 07/09/21 [History] RX: Ferrous Sulfate [Iron] 325 mg PO DAILY 09/26/21 [History] Follow up Appointment(s)/Referral(s): Derrick Renteria MD [STAFF PHYSICIAN] - 1 Week (Follow Dr. Haider within one week Continue Xarelto another cardiac medications, no changes) Activity/Diet/Wound Care/Special Instructions: Post EP study - Ablation instructions 1. Keep access sites dry for 2 days. 2. No heavy lifting or straining for 2 days. 3. Avoid bending the hips repeatedly for 2 days. 4. You may go up and down stairs slowly Call if the following is noted 1. Bleeding, increasing swelling or pain at the access sites. 2. Increasing chest discomfort, especially upon taking a deep breath. 3. Increasing shortness of breath, at rest or with exertion. 4. Undue cough / phlegm 5. Difficulty or pain while swallowing. 6. Pain or change in color in the extremities. 7. Fever, chills, rigors. 8. Increasing headache or neurologic symptoms. 9. Dizziness, fainting, palpitations Continue Xarelto and other medications as before Discharge Disposition: HOME SELF-CARE
== END 2021-09-28 13:50 | disposition home or self-care (01) ==
LOC: CATHEP 09:08 → 6NMEDSUR 13:59 → CATHEP 09-28 13:50
PROVIDERS: ATTEND Internal Medicine Clinical Cardiac Electrophysiology
DX: I48.19 Other persistent atrial fibrillation (principal); I49.5 Sick sinus syndrome; Z95.0 Presence of cardiac pacemaker; Z20.822 Contact with and (suspected) exposure to COVID-19
CPT/HCPCS: 93656; 87635; C1894 ×2; C1769 ×5; C1760; C1730 ×2; C1759; C1893; C1733; C1766; S0138; J2250; J1644 ×2; J0690; J2001; J3010; J0131; J2370; J0330; J2704; Q9967

== ENCOUNTER → 2021-12-27 | Outpatient (CLI) | payer MEDICARE ==
[2021-12-27 11:05] LABS: ALT 63 U/L (10-49); AST 39 U/L (14-35); African American GFR (CKD) 97.9 (60.0-200.0); Albumin 4.6 g/dL (3.8-4.9); Albumin/Globulin Ratio 1.84 (1.60-3.17); Alkaline Phosphatase 79 U/L (41-126); BUN/Creat Ratio 16.44 Ratio (12.00-20.00); Blood Urea Nitrogen 14.8 mg/dL (9.0-27.0); Calcium 9.6 mg/dL (8.7-10.3); Carbon Dioxide 26.7 mmol/L (20.0-27.5); Chloride 102 mmol/L (96-109); Globulin 2.5 g/dL (1.6-3.3); Glucose 110 mg/dL (70-110); LDL Cholesterol,Calculated 64.8 mg/dL (0.0-131.0); Non-African American GFR(CKD) 84.4 (60.0-200.0); Potassium 4.7 mmol/L (3.5-5.5); Sodium 139 mmol/L (135-145); Total Protein 7.1 g/dL (6.2-8.2); VLDL Calculation 17.72 mg/dL (5.00-40.00)
== END | disposition home or self-care (01) ==
LOC: LABWHC1 07:03
PROVIDERS: ATTEND Nurse Practitioner Adult Health
DX: I10 Essential (primary) hypertension (principal); E78.2 Mixed hyperlipidemia
CPT/HCPCS: 36415; 80053; 80061

== ENCOUNTER → 2022-01-21 | Outpatient (CLI) | payer MEDICARE ==
[2022-01-21 07:38] LABS: African American GFR (CKD) >90 (>60 ml/min/1.73 sqM); Blood Urea Nitrogen 18 mg/dL (9-20); Non-African American GFR(CKD) 84 (>60 ml/min/1.73 sqM)
--- NOTE | 2022-01-21 09:13 | CT ---
EXAMINATION TYPE: CT abdomen pelvis w con DATE OF EXAM: 01/21/2022 COMPARISON: CT dated 01/13/2019 HISTORY: Abdominal pain CT DLP: 1411.8 mGycm Automated exposure control for dose reduction was used. TECHNIQUE: Helical acquisition of images was performed from the lung bases through the pelvis. CONTRAST: Performed with Oral Contrast and with IV Contrast, patient injected with 70 mL of Isovue 300. FINDINGS: LUNG BASES: No significant abnormality is appreciated. LIVER/GB: Grossly unremarkable liver. Questionable gallbladder sludge. PANCREAS: No significant abnormality is seen. SPLEEN: No significant abnormality is seen. ADRENALS: No significant abnormality is seen. KIDNEYS: Right simple renal cyst without suspicious feature measuring up to 6.9 cm. Other suspected s maller cyst is seen at the upper pole of right kidney measuring 8mm with questionable density within. Precautionary follow up by ultrasound in 6 months is advised. Grossly unremarkable kidneys otherwise . FREE AIR: No free air is visualized. RETROPERITONEAL ADENOPATHY: None visualized REPRODUCTIVE ORGANS: Enlarged prostate with prostatic concretion, please correlate with PSA level. Un remarkable seminal vesicle. URINARY BLADDER: The enlarged prostate indents and elevates the urinary bladder base, otherwise unre markable urinary bladder. PELVIC ADENOPATHY: No pathologically enlarged pelvic lymph nodes. OSSEOUS STRUCTURES: Marked degenerative changes of the lumbar spine with anterolisthesis of L4 over L5. Further MRI of the lumbar spine can be considered if clinically required. BOWEL: Questionable very small sliding hiatal hernia, otherwise unremarkable stomach. Duodenal diver ticulum. Segments of mild nonspecific small bowel wall thickening. No evidence of bowel obstruction. Scattered uncomplicated colonic diverticulosis. No gross colonic mass however a small lesion cannot b e excluded. Recommend correlation with colonoscopy results. OTHER: Scattered arterial atherosclerotic calcifications. No sizable ascites. IMPRESSION: No definite acute abnormality or obvious suspicious mass seen in the abdomen or the pelvis. Incidenta l findings and recommendations as described above.
== END | disposition home or self-care (01) ==
LOC: RADCTMAIN 06:28
PROVIDERS: ATTEND Family Medicine
DX: R10.9 Unspecified abdominal pain (principal)
CPT/HCPCS: 82565; 84520; 74177; 36415; Q9967 ×2

== ENCOUNTER → 2022-07-09 | Outpatient (CLI) | payer MEDICARE ==
[2022-07-09 10:44] LABS: Basophils # (A) 0.08 X 10*3/uL (0.00-0.10); Basophils % (A) 1.2 %; Eosinophils # (A) 0.14 X 10*3/uL (0.04-0.35); Eosinophils % (A) 2.2 %; HGB 16.2 g/dL (13.0-17.0); Immature Grans, Automated 0.3 %; Lymphocytes # (A) 1.32 X 10*3/uL (0.90-5.00); Lymphocytes % (A) 20.4 %; MCH 30.7 pg (27.0-32.0); MCHC 34.5 g/dL (32.0-37.0); Mean Platelet Volume 10.5 fL (9.5-12.2); Monocytes # (A) 0.96 X 10*3/uL (0.20-1.00); Monocytes % (A) 14.8 %; NRBC Per 100 WBC 0 /100 WBCS (0.0-0.0); Neutrophils # (A) 3.96 X 10*3/uL (1.80-7.70); Neutrophils % (A) 61.1 %; Platelet Count 214 X 10*3/uL (140-440); RBC 5.28 X 10*6/uL (4.40-5.60); RDW 12.3 % (11.5-14.5); WBC 6.48 X 10*3/uL (4.50-10.00)
[2022-07-09 11:00] LABS: ALT 49 U/L (10-49); AST 31 U/L (14-35); African American GFR (CKD) 85.1 (60.0-200.0); Albumin 4.3 g/dL (3.8-4.9); Albumin/Globulin Ratio 1.73 (1.60-3.17); Alkaline Phosphatase 86 U/L (41-126); BUN/Creat Ratio 16.24 Ratio (12.00-20.00); Blood Urea Nitrogen 16.4 mg/dL (9.0-27.0); Calcium 9.6 mg/dL (8.7-10.3); Carbon Dioxide 27.3 mmol/L (20.0-27.5); Chloride 103 mmol/L (96-109); Chol/HDL Ratio 2.85 Ratio; Globulin 2.5 g/dL (1.6-3.3); Glucose 106 mg/dL (70-110); LDL Cholesterol,Calculated 58.5 mg/dL (0.0-131.0); Non-African American GFR(CKD) 73.5 (60.0-200.0); Potassium 4.9 mmol/L (3.5-5.5); Sodium 141 mmol/L (135-145); Total Protein 6.8 g/dL (6.2-8.2); VLDL Calculation 13.54 mg/dL (5.00-40.00)
== END | disposition home or self-care (01) ==
LOC: LABWHC1 06:39
PROVIDERS: ATTEND Family Medicine
DX: E03.9 Hypothyroidism, unspecified (principal)
CPT/HCPCS: 36415; 80053; 80061; 84439; 84443; 84481; 85025

== ENCOUNTER → 2022-08-06 | Outpatient (CLI) | payer MEDICARE ==
--- NOTE | 2022-08-06 09:27 | US ---
EXAMINATION TYPE: US kidneys/renal and bladder DATE OF EXAM: 08/06/2022 COMPARISON: Correlation CT 01/21/2022 FINDINGS: CLINICAL HISTORY: 71-year-old male N28.1 CYST OF KIDNEY, ACQUIRED. TECHNIQUE: Multiple sonographic images of the kidneys and bladder are obtained. FINDINGS: EXAM MEASUREMENTS: Right Kidney: 11.6 x 5.1 x 4.3 cm Left Kidney: 11.9 x 5.7 x 5.2 cm Price Changer notes: Patient of large body habitus. Right Kidney: large cyst measuring 5.5 x 6.1 x 5.6cm as seen on CT. No hydronephrosis. Left Kidney: No hydronephrosis or masses seen Bladder: There is some soft tissue impressing onto the base of the bladder compatible with an enlarge d prostate gland. IMPRESSION: 1. No hydronephrosis. 2. Solitary benign 6.1 cm right renal cyst redemonstrated. A second smaller cortical lesion within th e right kidney seen on the 01/21/2022 CT is not apparent by ultrasound; no enlarging suspicious mass i s seen. The CT finding likely corresponds to a tiny cyst. 3. Prostatomegaly with soft tissue impressing onto the base of the bladder. Correlate with PSA values and patient's symptoms.
== END | disposition home or self-care (01) ==
LOC: RADUSWWP 08:31
PROVIDERS: ATTEND Family Medicine
DX: N28.1 Cyst of kidney, acquired (principal); N40.0 Benign prostatic hyperplasia without lower urinary tract symptoms; N28.9 Disorder of kidney and ureter, unspecified
CPT/HCPCS: 76770

== ENCOUNTER 2023-05-27 10:03 | Day surgery (SDC) | payer MEDICARE ==
[~2023-05-27 10:03] MED LIST changes: +LACTATED RINGERS 1,000 ML IV SCH; +LIDOCAINE 1% (10MG/ML) FOR IV START INTRADERMA PRN; -SODIUM CHLORIDE 0.9% 1,000 ML IV SCH
[2023-05-27 11:06] VITALS: TEMP 98.2
[2023-05-27] MEDS ORDERED: PROPOFOL 10 MG/ML 20 ML VIAL IV ONE (11:54)
--- NOTE | 2023-05-27 11:59 | P.GSHP ---
History of Present Illness H&P Date: 05/27/23 Chief Complaint: colon cancer screening 72-year-old male here for colonoscopy. Last colonoscopy 8 years ago. No rectal bleeding or melena. No constipation. Some looser stools at times. Some right lower quadrant abdominal pain for the last year or more. CAT scan last year showed no definite abnormalities. Past Medical History Past Medical History: Atrial Fibrillation, GERD/Reflux, Hyperlipidemia, Hypertension, Osteoarthritis (OA), Prostate Disorder, Sleep Apnea/CPAP/BIPAP, Thyroid Disorder Additional Past Medical History / Comment(s): no cpap used, hiatal hernia, diverticulitis, cardiac ablation still in A fib but "condition is better" History of Any Multi-Drug Resistant Organisms: None Reported Past Surgical History: Pacemaker Additional Past Surgical History / Comment(s): "removal of bowel polyp age 1", devonte catracts,dual chamber pacemaker Past Anesthesia/Blood Transfusion Reactions: No Reported Reaction Additional Past Anesthesia/Blood Transfusion Reaction / Comment(s): adopted- no family hx Type of Cardiac Device: Permanent Pacemaker Device Placement Date:: 12-08-20 [employer] Smoking Status: Never smoker - Past Family History Mother History Unknown: Yes Family Medical History: Unable to Obtain Additional Family Medical History / Comment(s): pt is adopted Medications and Allergies Home Medications Medication Instructions Recorded Confirmed Type Atorvastatin [Lipitor] 20 mg PO W/SUPPER 12/06/20 05/27/23 History Esomeprazole Magnesium [NexIUM] 40 mg PO DAILY 12/06/20 05/27/23 History Finasteride [Proscar] 5 mg PO DAILY 12/06/20 05/27/23 History Levothyroxine Sodium [Synthroid] 75 mcg PO DAILY 12/06/20 05/27/23 History Multivitamins, Thera [Multivitamin 1 tab PO DAILY 12/06/20 05/23/23 History (formulary)] Rivaroxaban [Xarelto] 20 mg PO W/SUPPER 12/06/20 05/27/23 History Tamsulosin [Flomax] 0.4 mg PO DAILY 12/06/20 05/27/23 History amLODIPine [Norvasc] 10 mg PO W/SUPPER 12/06/20 05/27/23 History atenoloL [Tenormin] 25 mg PO W/SUPPER 07/06/21 05/27/23 History Acetaminophen Tab [Tylenol] 650 mg PO Q4H PRN 07/09/21 05/27/23 History Ferrous Sulfate [Iron] 325 mg PO DAILY 09/26/21 05/23/23 History Dicyclomine [Bentyl] 1 cap PO BID 05/23/23 05/27/23 History Allergies Allergy/AdvReac Type Severity Reaction Status Date / Time cephalexin [From Keflex] AdvReac Abdominal Verified 05/27/23 10:58 Pain erythromycin base AdvReac Abdominal Verified 05/27/23 10:58 Pain meperidine [From Demerol] AdvReac Unknown Verified 05/27/23 10:58 Surgical - Exam Vital Signs Temp Pulse Resp BP Pulse Ox 98.2 F 59 L 16 105/59 98 05/27/23 11:04 05/27/23 11:04 05/27/23 11:04 05/27/23 11:04 05/27/23 11:04 Physical exam: General: Well-developed, well-nourished HEENT: Normocephalic, sclerae nonicteric Abdomen: Nontender, nondistended Extremities: No edema Neuro: Alert and oriented Assessment and Plan (1) Colon cancer screening Narrative/Plan: Will proceed with colonoscopy this time. Current Visit: Yes Status: Acute Code(s): Z12.11 - ENCOUNTER FOR SCREENING FOR MALIGNANT NEOPLASM OF COLON SNOMED Code(s): 782155362
--- NOTE | 2023-05-27 12:12 | P.PCN ---
Date of Procedure: 05/27/23 Procedure(s) Performed: PREOPERATIVE DIAGNOSIS: Colon cancer screening POSTOPERATIVE DIAGNOSIS: Diverticulosis, transverse colon polyp PROCEDURE: Colonoscopy with biopsy ANESTHESIA: MAC SURGEON: Timmy Saez M.D. SPECIMENS: Transverse colon polyp ENDOSCOPIC PROCEDURE: The patient was placed on the endoscopy table in the left decubitus position. The Olympus colonoscope was inserted into the anus and passed under direct visualization to the base of the cecum. The appendiceal orifice was visualized. From that point the scope was slowly withdrawn inspecting all surfaces carefully. There were no neoplastic inflammatory or polypoid lesions throughout the cecum and ascending colon. In the transverse colon a small polyp was seen and removed using the biopsy forceps. The remainder of the transverse descending sigmoid and rectum appeared normal. There was mild scattered diverticulosis. Digital rectal examination was normal. The patient was taken to the recovery room in stable condition per anesthesia guidelines. RECOMMENDATIONS: Await biopsy results. No definite etiology for patient's ab dominal pain seen.
[2023-05-27 12:37] VITALS: BP 107/66; PULSE 57; RESP 20
== END 2023-05-27 12:50 | disposition home or self-care (01) ==
LOC: ORWHC2ENDO 10:03
PROVIDERS: ATTEND Surgery
DX: Z12.11 Encounter for screening for malignant neoplasm of colon (principal); D12.3 Benign neoplasm of transverse colon; K57.30 Diverticulosis of large intestine without perforation or abscess without bleeding; K44.9 Diaphragmatic hernia without obstruction or gangrene; I48.91 Unspecified atrial fibrillation; I10 Essential (primary) hypertension; M19.90 Unspecified osteoarthritis, unspecified site; N42.9 Disorder of prostate, unspecified; G47.33 Obstructive sleep apnea (adult) (pediatric); E03.9 Hypothyroidism, unspecified; E78.5 Hyperlipidemia, unspecified; Z95.0 Presence of cardiac pacemaker; Z96.89 Presence of other specified functional implants; Z98.42 Cataract extraction status, left eye; Z98.41 Cataract extraction status, right eye; K21.9 Gastro-esophageal reflux disease without esophagitis; Z98.890 Other specified postprocedural states; Z88.1 Allergy status to other antibiotic agents; Z88.5 Allergy status to narcotic agent; Z79.890 Hormone replacement therapy; Z79.01 Long term (current) use of anticoagulants; Z79.83 Long term (current) use of bisphosphonates; Z79.899 Other long term (current) drug therapy
CPT/HCPCS: 88305; 45380; J2704

== ENCOUNTER → 2023-10-08 | Outpatient (CLI) | payer MEDICARE ==
--- NOTE | 2023-10-09 15:37 | US ---
EXAMINATION TYPE: US carotid duplex BILAT DATE OF EXAM: 10/08/2023 COMPARISON: NONE CLINICAL INDICATION: Male, 72 years old with history of G45.9 TRANSIENT CEREBRAL ISCHEMIC ATTACK, UNS PECI; Patient has Purdy's Palsy. Patient states his doctor thought he may have had a stroke. No other pain or symptoms. TECHNIQUE: Carotid duplex ultrasound examination. Indirect Doppler criteria was utilized. FINDINGS: EXAM MEASUREMENTS: RIGHT: Peak Systolic Velocity (PSV) cm/sec ----- Right CCA: 82.7 ----- Right ICA: 56.7 ----- Right ECA: 110.8 ICA/CCA ratio: 0.9 RIGHT: End Diastole cm/sec ----- Right CCA: 17.1 ----- Right ICA: 16.8 ----- Right ECA: 11.1 LEFT: Peak Systolic Velocity (PSV) cm/sec ----- Left CCA: 72.1 ----- Left ICA: 58.1 ----- Left ECA: 77.3 ICA/CCA ratio: 0.8 LEFT: End Diastole cm/sec ----- Left CCA: 16.2 ----- Left ICA: 16.1 ----- Left ECA: 11.9 VERTEBRALS (direction of flow): Right Vertebral: Antegrade Left Vertebral: Antegrade Rhythm: ELECTRIC POWER LINE EXAMINER NOTES: No plaque or wall thickening seen. No elevated velocties seen today. IMPRESSION: No hemodynamically significant internal carotid artery stenosis on either side. Criteria for Assigning % of Stenosis / Diameter reduction (Estimation based on the indirect measurements of the internal carotid artery velocities (ICA PSV). 1. Normal (no stenosis)=ICA PSV < 125 cm/s: ratio < 2.0: ICA EDV<40 cm/s. 2. Less than 50% stenosis=ICA PSV < 125 cm/s: ratio < 2.0: ICA EDV<40 cm/s. 3. 50 to 69% stenosis=ICA PSV of 125 to 230 cm/s: ration 2.0 ? 4.0: ICA EDV 40-100 cm/s. 4. Greater than 70% stenosis to near occlusion= ICA PSV > 230 cm/s: ratio > 4.0: ICA EDV > 100 cm/s. 5. Near occlusion= ICA PSV velocities may be low or undetectable: variable ratio and ICA EDV. 6. Total occlusion=unable to detect flow.
== END | disposition home or self-care (01) ==
LOC: RADUSWWP 12:09
PROVIDERS: ATTEND Family Medicine
DX: G45.9 Transient cerebral ischemic attack, unspecified (principal)
CPT/HCPCS: 93880

== ENCOUNTER → 2023-11-27 | Outpatient (CLI) | payer MEDICARE | END | disposition home or self-care (01) | LOC: LABWHC1 07:48 | PROVIDERS: ATTEND Family Medicine | DX: R10.12 Left upper quadrant pain (principal); R07.89 Other chest pain; Z95.0 Presence of cardiac pacemaker | CPT/HCPCS: 36415; 93005 ==

== ENCOUNTER → 2023-11-28 | Outpatient (CLI) | payer MEDICARE ==
--- NOTE | 2023-11-28 15:32 | US ---
EXAMINATION TYPE: US abdomen limited DATE OF EXAM: 11/28/2023 COMPARISON: NONE CLINICAL INDICATION: Male, 72 years old with history of R10.12 LEFT UPPER QUADRANT PAIN; pt had some blunt trauma to the left chest area with persisting left flank pain TECHNIQUE: Multiple sonographic images of the left upper quadrant are obtained. FINDINGS: EXAM MEASUREMENTS: Spleen: 10.8 cm Left Kidney: 12.1 x 5.7 x 4.9 cm BRAZER PRODUCTION LINE NOTES: 1. Spleen: wnl 2. Left Kidney: wnl IMPRESSION: No evidence for acute process. No obstructive uropathy
== END | disposition home or self-care (01) ==
LOC: RADUSWWP 08:05
PROVIDERS: ATTEND Family Medicine
DX: R10.12 Left upper quadrant pain (principal)
CPT/HCPCS: 76705

== ENCOUNTER → 2024-10-28 | Outpatient (CLI) | payer MEDICARE ==
--- NOTE | 2024-10-28 08:31 | XR ---
EXAMINATION TYPE: XR cervical spine comp DATE OF EXAM: 10/28/2024 7:37 AM COMPARISON: None CLINICAL INDICATION: Male, 73 years old with history of M50.30 OTHER CERVICAL DISC DEGENERATION, UNSP CERV; PHH, pain TECHNIQUE: The cervical spine was imaged in frontal, lateral, odontoid and bilateral oblique. FINDINGS: The osseous structures show normal alignment without evidence of an acute fracture. There are osteoph ytes noted throughout the cervical spine on the anterior and lateral aspects of the vertebral bodies. The intervertebral disk spaces are narrowed at multiple levels. Pedicles are intact. Soft tissues a re within normal limits. The odontoid appears intact. IMPRESSION: 1. No fracture or dislocation. 2. Mild to moderate degenerative disc disease changes of the cervical spine. [facility], , 10/28/2024 8:29 AM
== END | disposition home or self-care (01) ==
LOC: RADXRMAIN 07:21
PROVIDERS: ATTEND Family Medicine
DX: M50.30 Other cervical disc degeneration, unspecified cervical region (principal)
CPT/HCPCS: 72050

== ENCOUNTER → 2024-11-25 | Outpatient (CLI) | payer MEDICARE ==
--- NOTE | 2024-11-25 11:04 | XR ---
EXAMINATION TYPE: XR femur RT DATE OF EXAM: 11/25/2024 11:00 AM COMPARISON: Radiographs of the knee 01/04/2021 CLINICAL INDICATION: Male, 73 years old with history of M79.651 PAIN IN RIGHT THIGH; PHH, pain TECHNIQUE: 2 views FINDINGS: Suspect some phleboliths in the right side of the pelvis. Mild generalized muscle atrophy. No acute fracture, subluxation, dislocation seen. Degenerative spurring and some joint space narrowi ng at the medial compartment of the knee. Some additional degenerative spurring at the patellofemoral compartment. No knee joint effusion seen. There may be some anterior infrapatellar soft tissue swell ing. No acute fracture. IMPRESSION: Suspect moderate medial compartmental osteoarthrosis of the knee. There may be some anterior infrapat ellar soft tissue swelling. No acute osseous abnormality seen along the right femur. [facility], Workstation: [facility], 11/25/2024 11:02 AM
== END | disposition home or self-care (01) ==
LOC: RADXRWHC 09:11
PROVIDERS: ATTEND Family Medicine
DX: M79.651 Pain in right thigh (principal)